=== PATIENT | female | born 1965 | race Caucasian/White ===

== ENCOUNTER 2017-02-28 14:17 | Emergency (ER) | payer BC ==
[2017-02-28 14:37] VITALS: BP 134/77
--- NOTE | 2017-02-28 15:26 | RAD ---
INDICATION: Right foot injury. TECHNIQUE: 3 views of the right foot were obtained. FINDINGS: There is soft tissue swelling present along the dorsal aspect of the foot. The bones are in normal alignment. There is a small area of cortical thickening in the proximal diaphysis of the third metatarsal likely secondary to an old healed fracture. No acute fracture is seen. Joint spaces appear maintained. IMPRESSION: NO ACUTE FRACTURE IS SEEN. IF THE PATIENT'S SYMPTOMS PERSIST, RECOMMEND FOLLOW-UP IMAGING.
--- NOTE | 2017-02-28 15:39 | UC ---
Lower Extremity/Ankle HPI - HPI Summary HPI Summary: 52 yo female injured her plantar midfoot (R) 2 weeks ago felt a pop pain getting worse able to bear wt with a limp - History of Current Complaint Chief Complaint: UCLowerExtremity Stated Complaint: RIGHT FOOT PAIN Time Seen by Provider: 02/28/17 14:44 Hx Obtained From: Patient Hx Last Menstrual Period: ablation Onset/Duration: Sudden Onset, Lasting Weeks Severity Initially: Moderate Severity Currently: Moderate Pain Intensity: 4 Pain Scale Used: 0-10 Numeric Aggravating Factor(s): Standing, Ambulation Alleviating Factor(s): Rest Able to Bear Weight: Yes - Allergies/Home Medications Allergies/Adverse Reactions: Allergies Allergy/AdvReac Type Severity Reaction Status Date / Time Cephalexin Allergy Hives Verified 02/28/17 14:27 peaches Allergy Rash Uncoded 02/28/17 14:27 Home Medications: Home Medications Blood Pressure/Migraine Med 1 tab BEDTIME 02/28/17 [History] PMH/Surg Hx/FS Hx/Imm Hx Previously Healthy: Yes Endocrine History: Hyperthyroidism, Dyslipidemia GI/ History: Gastroesophageal Reflux Neurological History: CVA - Surgical History Surgical History: Yes Surgery Procedure, Year, and Place: . KIDNEY STONES REMOVED - Family History Known Family History: Positive: Hypertension, Diabetes - Social History Alcohol Use: None Substance Use Type: None Smoking Status (MU): Never Smoked Tobacco - Immunization History Most Recent Influenza Vaccination: UNKNOWN Most Recent Tetanus Shot: UTD Most Recent Pneumonia Vaccination: N/A Review of Systems Constitutional: Negative Skin: Negative Eyes: Negative ENT: Negative Respiratory: Negative Cardiovascular: Negative Gastrointestinal: Negative Genitourinary: Negative Motor: Negative Neurovascular: Negative Musculoskeletal: Arthralgia, Myalgia Neurological: Negative Psychological: Negative All Other Systems Reviewed And Are Negative: Yes Physical Exam Triage Information Reviewed: Yes Appearance: Well-Appearing, No Pain Distress, Well-Nourished Vital Signs: Initial Vital Signs Temp 98 F 02/28/17 14:29 Pulse 89 02/28/17 14:29 Resp 16 02/28/17 14:29 BP 134/77 02/28/17 14:29 Pulse Ox 96 02/28/17 14:29 Vital Signs Reviewed: Yes Eyes: Positive: Conjunctiva Clear ENT: Positive: Hearing grossly normal. Negative: Nasal congestion, Nasal drainage, Trismus, Muffled/hoarse voice Neck: Positive: Supple Respiratory: Positive: Lungs clear, Normal breath sounds, No respiratory distress Cardiovascular: Positive: RRR, No Murmur Musculoskeletal: Positive: Strength Intact, Other: - see image/antalgic gait Neurological Exam: Normal Neurological: Positive: Alert Psychological Exam: Normal Lower Extremity Course/Dx - Differential Dx/Diagnosis Provider Diagnoses: right foot injury- suspect torn plantar fascia Discharge - Discharge Plan Condition: Stable Disposition: HOME Patient Education Materials: Foot Sprain (ED) Referrals: Bharath Washington MD [Medical Doctor] - As Soon As Possible Additional Instructions: rest elevate ice twice daily CAM boot use your crutches if necessary tylenol or advil as needed for pain I suggest ortho follow up Images Feet (Multiple View): 1 - tender
== END 2017-02-28 16:05 | disposition home or self-care (01) ==
LOC: UCCORT 14:17
DX: S99.921A Unspecified injury of right foot, initial encounter (principal); E05.90 Thyrotoxicosis, unspecified without thyrotoxic crisis or storm; K21.9 Gastro-esophageal reflux disease without esophagitis; E78.5 Hyperlipidemia, unspecified; X58.XXXA Exposure to other specified factors, initial encounter; Y92.9 Unspecified place or not applicable
CPT/HCPCS: 99212; G0463